=== PATIENT | female | born 1965 | race Caucasian/White ===

== ENCOUNTER 2018-04-27 20:26 | Emergency (ER) | payer OTHER ==
[2018-04-27 20:53] VITALS: BP 122/64
--- NOTE | 2018-04-27 21:08 | UC ---
Elbow Pain - HPI Summary HPI Summary: Fell going up stairs this evening and is experiencing left elbow and left hand pain. H/O elbow fracture 17 years ago. - History of Current Complaint Chief Complaint: UCUpperExtremity Stated Complaint: LEFT ELBOW INJURY Time Seen by Provider: 04/27/18 20:55 Hx Obtained From: Patient ?: No Onset/Duration: Minutes - 30, Traumatic - fell up stairs Severity Initially: Severe Severity Currently: Severe Pain Intensity: 8 Location Of Pain: Is Discrete @ - left elbow and hand Character: Sharp, Aching Aggravating Factor(s): Movement Alleviating Factor(s): Rest, Ice Associated Signs And Symptoms: Positive: Negative - Allergies/Home Medications Allergies/Adverse Reactions: Allergies Allergy/AdvReac Type Severity Reaction Status Date / Time ANESTHESIA AdvReac Vomiting Uncoded 04/27/18 20:47 Home Medications: Home Medications LevoCETirizine TAB (NF) [Xyzal TAB (NF)] 1 tab QPM 04/27/18 [History Confirmed 04/27/18] PMH/Surg Hx/FS Hx/Imm Hx Previously Healthy: Yes - Surgical History Surgical History: Yes Surgery Procedure, Year, and Place: BROKEN LEFT ELBOW W/PIN THEN REMOVED 2009. DEVIATED SEPTUM SURGERY 11/2011. TONSILS AGE 14 - Family History Known Family History: Positive: Diabetes - Social History Occupation: Employed Full-time Lives: With Family Alcohol Use: Occasionally Substance Use Type: None Smoking Status (MU): Never Smoked Tobacco Have You Smoked in the Last Year: No - Immunization History Most Recent Tetanus Shot: UTD Review of Systems Musculoskeletal: Arthralgia - elbow and hand Is Patient Immunocompromised?: No All Other Systems Reviewed And Are Negative: Yes Physical Exam Triage Information Reviewed: Yes Appearance: Well-Appearing, Well-Nourished, Pain Distress - mild Vital Signs: Initial Vital Signs Temp 99.3 F 04/27/18 20:49 Pulse 68 04/27/18 20:49 Resp 16 04/27/18 20:49 BP 122/64 04/27/18 20:49 Pulse Ox 100 04/27/18 20:49 Vital Signs Reviewed: Yes Eyes: Positive: Conjunctiva Clear Neck exam: Normal Respiratory Exam: Normal Cardiovascular Exam: Normal Musculoskeletal: Positive: 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 Sprain elbow. Discharge - Sign-Out/Discharge Documenting (check all that apply): Patient Departure - Discharge Plan Condition: Stable Disposition: HOME Patient Education Materials: Contusion in Adults (ED), Elbow Sprain (ED) Referrals: John Allen DO [Primary Care Provider] - - Billing Disposition and Condition Condition: STABLE Disposition: Home
--- NOTE | 2018-04-28 07:29 | RAD ---
INDICATION: Fall. Left elbow pain COMPARISON: None TECHNIQUE: AP, lateral, and oblique views were obtained. FINDINGS: There is no definitive fracture but position is limited due to pain. There are ossific densities about the lateral epicondyle which could be related to epicondylitis. There is no significant joint effusion. IMPRESSION: MILDLY LIMITED EXAMINATION BUT NO DEFINITE FRACTURE. SUGGEST FOLLOW-UP IN 7-10 DAYS IF THERE IS PERSISTENT PAIN. R0
--- NOTE | 2018-04-28 07:30 | RAD ---
Indication: Left hand pain after fall 4 views of left hand demonstrate no fracture. No other bone or joint abnormality is noted. IMPRESSION: No fracture of the left hand is noted. R0
== END 2018-04-27 22:10 | disposition home or self-care (01) ==
LOC: UCCORT 20:26
DX: S60.222A Contusion of left hand, initial encounter (principal); Z88.4 Allergy status to anesthetic agent; S53.402A Unspecified sprain of left elbow, initial encounter; W10.9XXA Fall (on) (from) unspecified stairs and steps, initial encounter; Y93.9 Activity, unspecified; Y92.9 Unspecified place or not applicable; Z87.81 Personal history of (healed) traumatic fracture
CPT/HCPCS: 99213; G0463